=== PATIENT | male | born 1970 | race Caucasian/White ===

== ENCOUNTER 2017-07-15 19:38 | Emergency (ER) | payer OTHER ==
[2017-07-15 19:46] VITALS: RESP 18
[2017-07-15 20:25] LABS: RBC URINE < 1 /hpf (0-3); URINE BILIRUBIN NEGATIVE (NEGATIVE); URINE BLOOD NEGATIVE (NEGATIVE); URINE COLOR Yellow (YELLOW); URINE GLUCOSE (UA) NORMAL (Normal); URINE KETONE NEGATIVE (NEGATIVE); URINE LEUKOCYTE ESTERASE NEG Leu/uL (Negative); URINE PROTEIN NEGATIVE (NEGATIVE); URINE UROBILINOGEN NORMAL mg/dL (0.2-1.0); WBC URINE 2 /hpf (0-5)
[2017-07-15 20:36] LABS: BASO # 0.1 K/uL (0.0-0.2); BASO % 0.6 % (0.0-2.0); EOS # 0.3 K/uL (0.0-0.7); EOS % 3.6 % (0.0-4.0); HEMATOCRIT 48.2 % (35.0-51.0); LYMPH # 3.1 K/uL (1.0-4.3); LYMPH % 34.7 % (20.0-40.0); MEAN CELL VOLUME 88.2 fL (80.0-94.0); MEAN CORPUSCULAR HEMOGLOBIN 31.5 pg (27.0-31.0); MEAN CORPUSCULAR HGB CONC 35.7 g/dL (33.0-37.0); MEAN PLATELET VOLUME 8.1 fL (7.2-11.7); MONO # 0.7 K/uL (0.0-0.8); NRBC % 0.2 % (0.0-2.0); RED CELL DISTRIBUTION WIDTH 12.5 % (11.5-14.5); WHITE BLOOD COUNT 8.9 K/uL (4.8-10.8)
[2017-07-15 20:37] LABS: CHLORIDE 102 mmol/L (98-107)
[2017-07-15 20:38] LABS: POTASSIUM 3.8 mmol/L (3.6-5.2); SODIUM 139 mmol/L (132-148)
[2017-07-15 20:40] LABS: ALB/GLOB RATIO 1.2 (1.0-2.1); ALKALINE PHOSPHATASE 74 U/L (38-126); ALT/SGPT 45 U/L (21-72); AST/SGOT 28 U/L (17-59); BILIRUBIN,TOTAL 0.7 mg/dL (0.2-1.3); BLOOD UREA NITROGEN 12 mg/dL (9-20); CARBON DIOXIDE 25 mmol/L (22-30); GFR AFRICAN-AMERICAN > 60; GLUCOSE,RANDOM 65 mg/dL (75-110); TOTAL PROTEIN 7.9 g/dL (6.3-8.3)
[2017-07-15 20:41] LABS: CALCIUM 9.3 mg/dl (8.6-10.4)
--- NOTE | 2017-07-15 20:49 | C.PDOC ---
History Of Present Illness 46 y/o male presents to ED with complaints of right abdominal pain for 1 week. Patient has a sclerotic lesion to left iliac bone evaluated on 05/2015 as benign. At ED patient is asymptomatic and denies dysuria, constipation, n/v/d, or any other complaints at this time. Time Seen by Provider: 07/15/17 19:58 Chief Complaint (Nursing): Abdominal Pain History Per: Patient History/Exam Limitations: no limitations Onset/Duration Of Symptoms: Days Current Symptoms Are (Timing): Still Present Past Medical History Reviewed: Historical Data, Nursing Documentation, Vital Signs Vital Signs: Last Vital Signs Temp 97.4 F L 07/15/17 19:42 Pulse 86 07/15/17 19:42 Resp 18 07/15/17 19:42 BP 164/98 H 07/15/17 19:42 Pulse Ox 97 07/15/17 20:51 - Medical History PMH: Gastritis - [facility] Procedures BONE BIOPSY NEC (04/20/15) Family History: States: Unknown Family Hx - Social History Hx Tobacco Use: Yes Hx Alcohol Use: No Hx Substance Use: No - Immunization History Hx Influenza Vaccination: No Hx Pneumococcal Vaccination: No Review Of Systems Except As Marked, All Systems Reviewed And Found Negative. Constitutional: Negative for: Fever, Chills Gastrointestinal: Positive for: Abdominal Pain. Negative for: Nausea, Vomiting , Diarrhea Genitourinary: Negative for: Dysuria, Frequency Musculoskeletal: Negative for: Back Pain Skin: Negative for: Rash Physical Exam - Physical Exam Appears: Non-toxic, No Acute Distress Skin: Normal Color, Warm, Dry, No Rash Head: Atraumatic, Normacephalic Eye(s): bilateral: Normal Inspection Oral Mucosa: Moist Chest: Symmetrical Cardiovascular: Rhythm Regular Respiratory: Normal Breath Sounds, No Rales, No Rhonchi, No Wheezing Gastrointestinal/Abdominal: Soft, No Tenderness, No Guarding, No Rebound, Other (normal sclerotic lesion to left iliac bone ) Extremity: Normal ROM, Capillary Refill (<2 seconds) Neurological/Psych: Oriented x3 ED Course And Treatment - Laboratory Results Result Diagrams: 07/15/17 20:25 07/15/17 20:25 Lab Interpretation: Normal (ua neg.) O2 Sat by Pulse Oximetry: 97 (RA) Pulse Ox Interpretation: Normal - Radiology CXR: Interpreted by Ri CXR Interpretation: Yes: No Acute Disease - Other Rad ABD x 2 X-Ray: Interpreted by Me (++ stool R colon) Reevaluation Time: 21:54 Reassessment Condition: Unchanged (remains benign) Medical Decision Making Medical Decision Making: colicky R abd discomfort c/w constipation, normal labs/UA Disposition Doctor Will See Patient In The: Office Counseled Patient/Family Regarding: Studies Performed, Diagnosis - Disposition Referrals: Clinic,Med Surg [Primary Care Provider] - Disposition: HOME/ ROUTINE Disposition Time: 21:55 Condition: GOOD Forms: [employer] Connect (German) - Clinical Impression Clinical Impression: Abdominal colic - 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 - Scribe Statement The provider has reviewed the documentation as recorded by the Vjibsylvie Menon All medical record entries made by the Vjibsylvie were at my direction and personally dictated by me. I have reviewed the chart and agree that the record accurately reflects my personal performance of the history, physical exam, medical decision making, and the department course for this patient. I have also personally directed, reviewed, and agree with the discharge instructions and disposition.
[2017-07-15 22:38] VITALS: BP 149/89; PULSE 74; TEMP 97.6; O2SAT 98
--- NOTE | 2017-07-16 07:52 | RAD ---
PROCEDURE: Radiographs of the chest and abdomen (obstructive series) HISTORY: abd pain COMPARISON: No prior. TECHNIQUE: AP radiograph of the chest, with upright and supine radiographs of the abdomen. FINDINGS: CHEST: Lungs: Clear. Cardiovascular: Normal size heart. No pulmonary vascular congestion. Pleura: No pleural fluid. No pneumothorax. Other findings: None. ABDOMEN AND PELVIS: Bowel: Unremarkable bowel gas pattern. No evidence of mechanical obstruction. Free air: None. Bones: Unremarkable. Other findings: None. IMPRESSION: Mild constipation, otherwise unremarkable radiographs of chest and abdomen. No evidence of mechanical bowel obstruction.
== END 2017-07-15 22:38 | disposition home or self-care (01) ==
LOC: C.ER 19:38 → SUPCPDRO 19:38 → C.ER 22:38
DX: R10.84 Generalized abdominal pain (principal)

== ENCOUNTER 2018-10-26 15:28 | Emergency (ER) | payer OTHER ==
[2018-10-26 16:03] VITALS: BP 179/90; PULSE 102; RESP 20; TEMP 97.9; O2SAT 97
[2018-10-26] MEDS ORDERED: Lidocaine 5% Patch TD STA (16:12)
[2018-10-26] MEDS ORDERED: Lidocaine 5% Patch TD ONE (16:19)
--- NOTE | 2018-10-26 16:20 | C.PDOC ---
History Of Present Illness 47 year old male presents to the ED complaining of intermittent left buttock pain that radiates down to left leg associated with left leg numbness for one year. States it is painful to sit or walk. Denies any trauma or injuries. Reports he has tried Icy Hot with no improvement. Time Seen by Provider: 10/26/18 15:53 Chief Complaint (Nursing): Back Pain History Per: Patient History/Exam Limitations: no limitations Onset/Duration Of Symptoms: Days Current Symptoms Are (Timing): Still Present Quality Of Discomfort: "Pain" Previous Symptoms: Back Pain Associated Symptoms: None Exacerbating Factor(s): Movement, Sitting Past Medical History Reviewed: Historical Data, Nursing Documentation, Vital Signs Vital Signs: Last Vital Signs Temp 97.9 F 10/26/18 16:00 Pulse 102 H 10/26/18 16:00 Resp 20 10/26/18 16:00 BP 179/90 H 10/26/18 16:00 Pulse Ox 97 10/26/18 16:00 - Medical History PMH: Gastritis Surgical History: No Surg Hx - [facility] Procedures BONE BIOPSY NEC (04/20/15) Family History: States: No Known Family Hx - Social History Hx Tobacco Use: Yes Hx Alcohol Use: No Hx Substance Use: No - Immunization History Hx Tetanus Toxoid Vaccination: No Hx Influenza Vaccination: No Hx Pneumococcal Vaccination: No Review Of Systems Except As Marked, All Systems Reviewed And Found Negative. Constitutional: Negative for: Fever, Chills Musculoskeletal: Positive for: Other (left buttock pain ) Neurological: Positive for: Weakness, Numbness (left leg) Physical Exam - Physical Exam Appears: Non-toxic, No Acute Distress Skin: Warm, Dry, No Rash Head: Normacephalic Eye(s): bilateral: Normal Inspection Nose: Normal Oral Mucosa: Moist Neck: Normal ROM, Supple Chest: Symmetrical Cardiovascular: Rhythm Regular Respiratory: No Rales, No Rhonchi, No Wheezing Gastrointestinal/Abdominal: Soft, No Tenderness Back: No CVA Tenderness, No Vertebral Tenderness, No Paraspinal Tenderness, Other (left buttock tenderness) Extremity: Bilateral: Atraumatic, Normal Color And Temperature, Normal ROM Neurological/Psych: Oriented x3, Normal Speech, Normal Motor, Normal Sensation, Normal Reflexes Gait: Steady ED Course And Treatment O2 Sat by Pulse Oximetry: 97 (RA) Pulse Ox Interpretation: Normal Medical Decision Making Medical Decision Making: Plan - Tylenol 975mg PO - Flexeril 10mg PO - Motrin 600mg PO - Lidoderm patch Patient stated that he had a bone biopsy in 2015 but he was unsure of the reason. Looking at old records, there is an incidental finding of a sclerotic lesion to left iliac suspicious for neoplasm. CT scans of bone and PET scans from 2015 were reviewed - results were negative. Patient feeling better Disposition Counseled Patient/Family Regarding: Diagnosis - Disposition Referrals: [facility] [Outside] Disposition: HOME/ ROUTINE Disposition Time: 17:37 Condition: STABLE Prescriptions: Cyclobenzaprine [Cyclobenzaprine HCl] 10 mg PO TID #15 tab Ibuprofen [Motrin] 600 mg PO TID #15 tab Instructions: Sciatica Forms: [facility] (Telugu), General Discharge Instructions, Work Excuse - POA Present On Arrival: None - Clinical Impression Clinical Impression: Sciatica - Scribe Statement The provider has reviewed the documentation as recorded by the Scribe Jeri Braun All medical record entries made by the Vjibsylvie were at my direction and person ally dictated by me. I have reviewed the chart and agree that the record accurately reflects my personal performance of the history, physical exam, medical decision making, and the department course for this patient. I have also personally directed, reviewed, and agree with the discharge instructions and disposition.
== END 2018-10-26 17:47 | disposition home or self-care (01) ==
LOC: C.ER 15:28
DX: M54.30 Sciatica, unspecified side (principal); Z72.0 Tobacco use